=== PATIENT | female | born 1980 | race African-American/Black ===

== ENCOUNTER 2022-08-29 10:28 | Emergency (ER) | payer OTHER, SELFPAY ==
[2022-08-29 10:37] VITALS: BP 121/71; PULSE 82; RESP 16; TEMP 37.1; O2SAT 98
[2022-08-29 11:01] VITALS: BP 121/71; PULSE 82; RESP 16; TEMP 37.1; O2SAT 98
--- NOTE | 2022-08-29 11:17 | ED.URI ---
HPI - URI/Sore Throat General Chief Complaint: Upper Respiratory Infection Stated Complaint: congestion head and throat Time Seen by Provider: 08/29/22 11:17 Source: patient and RN notes reviewed Mode of arrival: ambulatory Limitations: no limitations History of Present Illness HPI Narrative: 42-year-old female presented for complaint of sinus pressure and congestion for about 1 week. She endorses waking this morning attempting to blow her nose, and states she was unable to expel any mucus, was only able to expel blood clots. Denies subsequent nosebleed or active drainage. Admits to increasing the air purifier recently. She also endorses her voice is hoarse and she feels pain with talking or swallowing, and states tonsils are enlarged. She endorses occasional nonproductive cough. She denies shortness of breath, wheezing, nausea, vomiting or diarrhea, fevers or chills. She denies sick contacts. She has used Vicks and nasal spray for symptoms. MD elicited complaint: cough Related Data Allergies Allergy/AdvReac Type Severity Reaction Status Date / Time Penicillins Allergy Difficulty Verified 08/29/22 11:14 Breathing Review of Systems Review of Systems: per HPI [facility] Past Medical History Medical History (Updated 08/29/22 @ 14:55 by Belia Hyatt, [employer]) No pertinent past medical history Exam Narrative: GENERAL: Ill-appearing, nontoxic EYES: PERRLA, conjunctivae clear ENT: Mucous membranes moist. Hoarse voice, nasal congestion. TMs pearly murphy with dull light reflex bilaterally, mild bilateral clear effusion; no tragal tenderness. Oropharynx erythematous without lesions or exudate, no drooling, no hoarseness, no trismus, uvula midline. CHEST: Clear to auscultation, breath sounds equal. No wheezing, rhonchi, rales, or stridor. No respiratory distress, speaks in full sentences. HEART: Regular rate and rhythm. No murmur heard. SKIN: Warm, dry, no rash. NEURO: Alert and oriented x3. PSYCH: Normal mood and affect Course Course Emergency Course: Patient is aware of diagnosis, understands and agrees to treatment plan. Anticipatory guidance given. Patient agrees to follow-up as directed and is aware of reasons to seek care at the emergency department. Portions of this record may have been created with voice recognition software Level of Care: Express Care Visit Vital Signs Vital signs: Vital Signs Temperature 98.7 F 08/29/22 10:37 Pulse Rate 82 08/29/22 10:37 Respiratory Rate 16 08/29/22 10:37 Blood Pressure 121/71 08/29/22 10:37 Pulse Oximetry 98 08/29/22 10:37 Oxygen Delivery Room Air 08/29/22 10:37 Temperature 98.7 F 08/29/22 11:01 Pulse Rate 82 08/29/22 11:01 Respiratory Rate 16 08/29/22 11:01 Blood Pressure 121/71 08/29/22 11:01 Pulse Oximetry 98 08/29/22 11:01 Oxygen Delivery Room Air 08/29/22 11:01 reviewed MDM - URI/Sore Throat MDM Narrative Medical decision making narrative: Advised supportive measures and signs/symptoms to go to the ER. Pt is appropriate for outpt treatment and f/u. Differential Diagnosis Differential diagnosis: Likely upper respiratory infection, sinusitis and viral infection Lab Data Labs: Strep Screen Presumptive Negative *(Reference Range: Negative)* Strep Screen Presumptive Negative *(Reference Range: Negative)* Discharge Plan Discharge Clinical Impression: Upper respiratory infection Patient Disposition: Home, Self-Care Condition: Stable Instructions: Antibiotic Form, Rhinosinusitis (ED) Additional Instructions: take antibiotics as directed Recommend saline nasal spray as needed throughout the day Mucinex as directed Tylenol 1000mg every 8 hours as needed for pain Symptomatic treatment includes: rest, fluids, and increase humidity of the air at home. Follow up with your primary care provider
== END 2022-08-29 11:30 | disposition home or self-care (01) ==
PROVIDERS: Emergency Provider Nurse Practitioner Family; PCP Emergency Medicine
DX: J06.9 Acute upper respiratory infection, unspecified (principal)
CPT/HCPCS: 87081; 87880; 99213; G0463

== ENCOUNTER 2022-09-17 08:26 | Outpatient (CLI) | payer OTHER, SELFPAY ==
[2022-09-17 18:04] LABS: Alanine Aminotransferase 25 U/L (6-35); Alkaline Phosphatase 83 U/L (38-126); Anion Gap 3 mmol/L (8-16); Aspartate Amino Transferase 59 U/L (14-36); Bilirubin,Total 0.6 mg/dL (0.2-1.3); Blood Urea Nitrogen 11 mg/dL (7-17); Carbon Dioxide 29 mmol/L (22-30); Chloride 103 mmol/L (98-107); Cholesterol 220 mg/dL (0-200); Estimated Glomerular Filt Rate > 60; Glucose 77 mg/dL (65-110); HDL Direct 46 mg/dL; Potassium 4.7 mmol/L (3.4-5.0); Sodium 135 mmol/L (137-145); Triglycerides 63 mg/dL (<150)
[2022-09-17 18:07] LABS: Basophils Percent Auto 0.6 % (0.2-1.2); Eosinophils Absolute Auto 0.1 K/mm3 (0-0.3); Eosinophils Percent Auto 1.2 % (0-4.4); Hematocrit 40.1 % (37.0-47.0); Immature Granulocyte Absolute 0.01 K/mm3 (0.00-0.031); Immature Granulocyte Percent A 0.2 % (0-0.5); Lymphocytes Absolute Auto 1.99 K/mm3 (0.9-3.2); Lymphocytes Percent Auto 39.3 % (18.3-44.2); Mean Corpuscular HGB Conc 32.4 g/dl (32-36); Mean Corpuscular Hemoglobin 31.8 pg (26-34); Mean Platelet Volume 10.1 fl (7.4-10.4); Monocytes Absolute Auto 0.4 K/mm3 (0.1-0.6); Monocytes Percent Auto 7.9 % (2.6-8.5); Neutrophils Absolute Auto 2.6 K/mm3 (1.3-6.7); Neutrophils Percent Auto 50.8 % (45.5-73.1); Platelet Count Result 268 k/mm3 (150-375); Red Blood Count 4.09 M/mm3 (4.2-5.4); Red Cell Distribution Width 13.1 % (11.5-14.5); White Blood Count 5.1 K/mm3 (4.5-10.0)
[2022-09-17 18:15] LABS: LDL Cholesterol Direct 134 mg/dL
== END 2022-09-17 08:27 | disposition home or self-care (01) ==
PROVIDERS: PCP Family Medicine; Visit Provider Family Medicine
DX: Z00.00 Encounter for general adult medical examination without abnormal findings (principal)
CPT/HCPCS: 36415; 80053; 80061; 85025